=== PATIENT | female | born 1940 | race Native Hawaiian/Other Pacific Islander ===

== ENCOUNTER 2016-06-30 08:25 | Outpatient (CLI) | payer OTHER ==
[~2016-06-30 08:25] MED LIST: CARV25TA PO; CENTRUM SILVER ULTRA OR; FLEXERIL5 MG PO; FLUT0.05 NAS; FOLI1TAB26 PO; FURO40TA93 PO; HYDR200T3 PO; KLOR-CON M2020 MEQ OR; LEFLUNOMIDE20 MG OR; LEFLUNOMIDE20 MG PO; LEVAQUIN500 MG PO; LORA10TA3 PO; METHO2.5 PO; NEURONTIN 100M100 MG OR; PANT40TA PO; PAXIL10 MG OR; POTA20TA4 PO; PROM25TA52 PO; Z-PAK PO; [UNRECOGNIZED DRUG - OTHER] OR
== END 2016-06-30 19:00 | disposition home or self-care (01) ==
LOC: MAMMO 08:25
DX: Z12.31 Encounter for screening mammogram for malignant neoplasm of breast (principal)
CPT/HCPCS: G0202-TC